=== PATIENT | male | born 1980 | race African-American/Black ===

== ENCOUNTER 2019-01-04 13:06 | Emergency (ER) | payer SELFPAY ==
[~2019-01-04] VITALS: Ht 175.3 cm; Wt 63.6 kg
[2019-01-04] MEDS ORDERED: OXYC5 PO (13:34)
[2019-01-04] MEDS ORDERED: IBUP-2070 PO (13:34)
[2019-01-04 13:53] VITALS: BP 135/62
== END 2019-01-04 16:07 | disposition home or self-care (01) ==
LOC: EMS 13:06
DX: M25.532 Pain in left wrist (principal); F12.90 Cannabis use, unspecified, uncomplicated; Z76.0 Encounter for issue of repeat prescription

== ENCOUNTER 2024-05-09 19:53 | Emergency (ER) | payer MEDICAID ==
[~2024-05-09] VITALS: Ht 175.3 cm; Wt 70.5 kg
[~2024-05-09 19:53] MED LIST: IBUP-1492 PO; OXYC5 PO
[2024-05-09 20:05] VITALS: BP 107/65; PULSE 81; RESP 18; TEMP 99.3; O2SAT 97
== END 2024-05-09 22:30 | disposition left against medical advice (07) ==
LOC: EMS 19:53
DX: M54.2 Cervicalgia (principal); M54.6 Pain in thoracic spine; R07.9 Chest pain, unspecified; Z53.21 Procedure and treatment not carried out due to patient leaving prior to being seen by health care provider